=== PATIENT | male | born 1995 | race Caucasian/White ===

== ENCOUNTER 2017-04-07 15:28 | Observation (INO) | payer SELFPAY ==
[~2017-04-07 15:28] MED LIST: CYCL5TAB PO; NAPR500T2 PO; RANI150C PO
[2017-04-07] MEDS ORDERED: DEXTROSE 50% IN WATER 50 ML VIAL(D50) IV PUSH PRN (15:45)
[2017-04-07] MEDS ORDERED: GLUCAGON 1 MG/ML VIAL OTHER PRN (15:45)
[2017-04-07] MEDS ORDERED: SODIUM CHLORIDE 0.9% FLUSH 5 ML FLUSH IV FLUSH PRN (15:45)
--- NOTE | 2017-04-07 19:59 | RADRPT ---
EXAM DATE/TIME: 04/07/2017 18:31 [facility] COMPARISON: No previous studies available for comparison. INDICATIONS : Transient ischemic attack. MEDICAL HISTORY : None. SURGICAL HISTORY : None. ENCOUNTER: Initial ACUITY: 1 day PAIN SCORE: 3/10 LOCATION: Bilateral neck PEAK SYSTOLIC VELOCITIES (cm/sec): ICA/CCA RATIO: Right: 0.9 Left: 0.7 ICA: Right: 106.9 Left: 80.9 CCA: Right: 122.1 Left: 117.4 ECA: Right: 60.3 Left: 55.6 VERTEBRAL: Right: 56.7 antegrade Left: 72.1 antegrade Elevated flow velocities and ICA/CCA ratios have been found to correlate with increased degrees of vessel stenosis, calculated as percentage of diameter relative to a normal segment of distal ICA/CCA FINDINGS: RIGHT CAROTID: No significant stenosis is visualized. The waveforms are within normal limits. LEFT CAROTID: No significant stenosis is visualized. The waveforms are within normal limits. VERTEBRAL ARTERIES: Antegrade flow is seen in both vertebral arteries. MISCELLANEOUS: None. CONCLUSION: Normal examination. Yo Man MD on April 07, 2017 at 19:56 Board Certified Radiologist. This report was verified electronically.
[2017-04-07 20:08] VITALS: BP 140/87; PULSE 68; RESP 19; TEMP 98.1; O2SAT 99
--- NOTE | 2017-04-07 20:15 | HHI.HP ---
[facility] Service [facility] Physician Tru Pantoja MD Admission Diagnosis Diagnoses: Travel History International Travel<30 Days: No Contact w/Intl Traveler <30 Da: No Traveled to Known Affected Are: No History of Present Illness 21-year-old male with a past medical history significant for IV drug abuse, last injection apparently yesterday, presents to the emergency department with left sided facial, upper and lower extremity weakness. The patient reports that he was playing with his children when he felt a numbness and tingling over the left side of his face and he was unable to use his left arm and left leg. He states he was unable to walk for a period of time and then gradually his function returned. His family members state that they witnessed the left side of his face with a significant facial droop, now resolved. The patient reports that his symptoms have resolved except for a residual left lower extremity numbness and tingling from his toes to his mid thigh. Head CT was negative for acute process. Carotid ultrasound was unremarkable. Review of Systems Denies fever or chills Denies blurry vision, otorrhea, rhinorrhea Denies sore throat and cough No chest pain, palpitations, shortness of breath No abdominal pain Denies constipation/diarrhea/nausea/vomiting Positive left-sided weakness No rashes Past Family Social History Past Medical History Asthma GERD Hypertension, not medicated LAYNE, no CPAP Past Surgical History Appendectomy Deviated septum Tonsillectomy Reported Medications None Allergies: Coded Allergies: cefaclor (Verified Allergy, Severe, 04/07/17) Family History Mom with von Willebrand's disease. Dad with diabetes and hypertension. Social History Smokes 1/2-1 pack per day 12 years. Rare alcohol. Endorses marijuana use. Also injects IV heroin, last injection yesterday Physical Exam Physical Exam GENERAL: Thin male lying in bed SKIN: No rashes, ecchymoses or lesions. Cool and dry. HEAD: Atraumatic. Normocephalic. No temporal or scalp tenderness. EYES: Pupils equal round and reactive. Extraocular motions intact. No scleral icterus. No injection or drainage. ENT: Nose without bleeding, purulent drainage or septal hematoma. Throat without erythema, tonsillar hypertrophy or exudate. Uvula midline. Airway patent. NECK: Trachea midline. No JVD or lymphadenopathy. Supple, nontender, no meningeal signs. CARDIOVASCULAR: Regular rate and rhythm without murmurs, gallops, or rubs. RESPIRATORY: Clear to auscultation. Breath sounds equal bilaterally. No wheezes , rales, or rhonchi. GASTROINTESTINAL: Abdomen soft, non-tender, nondistended. No hepato-splenomegaly , or palpable masses. No guarding. MUSCULOSKELETAL: Extremities without clubbing, cyanosis, or edema. No joint tenderness, effusion, or edema noted. No calf tenderness. Negative Homans sign bilaterally. NEUROLOGICAL: Awake and alert. Cranial nerves II through XII intact. 5/5 strength throughout. Decreased sensation left lower extremity from toes to mid thigh. No facial droop. Caprini VTE Risk Assessment Caprini VTE Risk Assessment: No/Low Risk (score <= 1) Caprini Risk Assessment Model Point Value = 1 Point Value = 2 Point Value = 3 Point Value = 5 Age 41-60 Minor surgery BMI > 25 kg/m2 Swollen legs Varicose veins or History of unexplained or recurrent spontaneous Oral contraceptives or hormone replacement Sepsis (< 1 month) Serious lung disease, including pneumonia (< 1 month) Abnormal pulmonary function Acute myocardial infarction Congestive heart failure (< 1 month) History of inflammatory bowel disease Medical patient at bed rest Age 61-74 Arthroscopic surgery Major open surgery (> 45 min) Laparoscopic surgery (> 45 min) Malignancy Confined to bed (> 72 hours) Immobilizing plaster cast Central venous access Age >= 75 History of VTE Family history of VTE Factor V Leiden Prothrombin [id number] Lupus anticoagulant Anticardiolipin antibodies Elevated serum homocysteine Heparin-induced thrombocytopenia Other congenital or acquired thrombophilia Stroke (< 1 month) Elective arthroplasty Hip, pelvis, or leg fracture Acute spinal cord injury (< 1 month) Prophylaxis Regimen Total Risk Factor Score Risk Level Prophylaxis Regimen 0-1 Low Early ambulation 2 Moderate Order ONE of the following: *Sequential Compression Device (SCD) *Heparin 5000 units SQ BID 3-4 Higher Order ONE of the following medications: *Heparin 5000 units SQ TID *Enoxaparin/Lovenox 40 mg SQ daily (WT < 150 kg, CrCl > 30 mL/min) *Enoxaparin/Lovenox 30 mg SQ daily (WT < 150 kg, CrCl > 10-29 mL/min) *Enoxaparin/Lovenox 30 mg SQ BID (WT < 150 kg, CrCl > 30 mL/min) AND/OR *Sequential Compression Device (SCD) 5 or more Highest Order ONE of the following medications: *Heparin 5000 units SQ TID (Preferred with Epidurals) *Enoxaparin/Lovenox 40 mg SQ daily (WT < 150 kg, CrCl > 30 mL/min) *Enoxaparin/Lovenox 30 mg SQ daily (WT < 150 kg, CrCl > 10-29 mL/min) *Enoxaparin/Lovenox 30 mg SQ BID (WT < 150 kg, CrCl > 30 mL/min) AND *Sequential Compression Device (SCD) Assessment and Plan Assessment and Plan 21-year-old male with a past medical history significant for IV drug abuse presents with left sided facial droop and upper and lower extremity weakness 1 day 1. TIA Neurology consulted, appreciate recommendations CT head, carotid ultrasound within normal limits MRI/MRA pending Lipid profile, TSH, A1c pending Echo pending 2. IV drug abuse/Tobacco abuse Counseled patient as to the important of cessation FEN Heart healthy diet and after bedside swallow evaluation Electrolytes: Monitor and replete when necessary SCDs Heather Santiago MD Apr 07, 2017 20:15
[2017-04-07] MEDS: SODIUM CHLORIDE 0.9% FLUSH 5 ML FLUSH IV FLUSH SCH (21:00)
--- NOTE | 2017-04-07 22:16 | RADRPT ---
EXAM DATE/TIME: 04/07/2017 21:14 [facility] COMPARISON: CT BRAIN W/O CONTRAST, April 07, 2017, 11:43. INDICATIONS : TIA. MEDICAL HISTORY : Hypertension. Hemophilia. SURGICAL HISTORY : Tonsillectomy. Appendectomy. Septum. ENCOUNTER: Subsequent ACUITY: 1 day PAIN SCORE: 3/10 LOCATION: cranial TECHNIQUE: Multiplanar, multisequence MRI of the brain was performed without contrast. FINDINGS: CEREBRUM: The ventricles are normal for age. No evidence of midline shift, mass lesion, hemorrhage or acute in farction. No extraaxial fluid collections are seen. The pituitary gland and suprasellar cistern are normal in configuration. WHITE MATTER: No significant signal abnormalities are seen in the white matter. POSTERIOR FOSSA: The cerebellum and brainstem are intact. The 4th ventricle is midline. The cerebellopontine angle is unremarkable. The cerebellar tonsils are normal in position. DIFFUSION IMAGING: No focal areas of restricted diffusion are seen. No evidence of acute infarction. EXTRACRANIAL: The visualized portions of the orbits are unremarkable. There is focal mucosal disease likely represe nting mucus retention cysts seen in the maxillary sinuses bilaterally. CONCLUSION: 1. No intracranial abnormality is seen. 2. Focal mucosal disease at the maxillary sinuses bilaterally. Yo Man MD on April 07, 2017 at 22:13 Board Certified Radiologist. This report was verified electronically.
--- NOTE | 2017-04-07 22:29 | RADRPT ---
EXAM DATE/TIME: 04/07/2017 21:14 [facility] COMPARISON: No previous studies available for comparison. INDICATIONS : TIA. MEDICAL HISTORY : Hypertension. Hemophilia. SURGICAL HISTORY : Tonsillectomy. Appendectomy. Septum. ENCOUNTER: Subsequent ACUITY: 1 day PAIN SCORE: 3/10 LOCATION: cranial Please note a normal MRA of the brain does not entirely exclude the possibility of a small aneurysm, nor the possibility of distal intracranial vessel disease. TECHNIQUE: 3D time of flight MRA was performed. Source images, multiplanar STS MIP, and 3D volume MIP reconstru ctions were reviewed. FINDINGS: There is excellent visualization of the major intracranial arteries out to the second-order branch ve ssels. There is no evidence for aneurysm, vessel truncation or stenosis, and no evidence for vascula r malformation. CONCLUSION: Normal examination. Yo Man MD on April 07, 2017 at 22:26 Board Certified Radiologist. This report was verified electronically.
[2017-04-07 23:44] VITALS: BP 116/66; PULSE 66; RESP 19; TEMP 97.2; O2SAT 98
[2017-04-08] VITALS (8 sets, daily range): BP systolic 113–163; BP diastolic 55–99; PULSE 53–84; RESP 16–18; TEMP 97.9–98.7; O2SAT 96–99
[2017-04-08] MEDS ORDERED: BISACODYL 10 MG SUPP RECTAL PRN (05:30)
[2017-04-08] MEDS ORDERED: ACETAMINOPHEN 325 MG TAB PO PRN ×2 (05:30)
[2017-04-08] MEDS ORDERED: LACTULOSE SYRUP 20 GM/30 ML CUP PO PRN (05:30)
[2017-04-08] MEDS ORDERED: ONDANSETRON HCL 4 MG/2 ML VIAL IVP PRN (05:30)
[2017-04-08] MEDS ORDERED: MAGNESIUM HYDROXIDE SUSP 30 ML CUP PO PRN (05:30)
[2017-04-08] MEDS ORDERED: NALOXONE HCL 0.4 MG/ML AMP IV PUSH PRN (05:30)
[2017-04-08] MEDS ORDERED: SENNOSIDES 8.6 MG TAB PO PRN (05:30)
[2017-04-08 08:41] LABS: HDL CHOLESTEROL 45.7 MG/DL (40.0-60.0)
[2017-04-08] MEDS ORDERED: ASPIRIN 325 MG TAB PO SCH (09:00)
[2017-04-08] MEDS: SODIUM CHLORIDE 0.9% FLUSH 5 ML FLUSH IV FLUSH SCH (09:00)
[2017-04-08] MEDS ORDERED: DOCUSATE SODIUM 50 MG/SENNA 8.6 MG TAB PO SCH (09:00)
--- NOTE | 2017-04-08 11:19 | MB ---
cc: RJ TERAN M.D. DATE OF CONSULTATION 04/08/2017 REASON FOR CONSULTATION This is a 20-year-old seen in neurological consultation in regards to stroke-like symptoms. He came to the emergency room yesterday. It appears that he developed a headache and then developed left-sided weakness, even needed a cane to walk. He has improved and at this point has minimal headache. He admits smoking and now I realized I reviewed in the data that he uses IV heroin. Apparently he shot himself the day before yesterday. It appears that he has a history of hypertension, but does not take any medications. He admits intermittent headaches, but never had symptoms like this. He admits using Naprosyn for back pain occasionally. NEUROLOGICAL EXAM The neurological exam was quite benign. Ocular movements and visual gutierres full. Pupils somewhat large and slightly reactive. No facial weakness. Tongue and palate move well. He has good strength throughout on the bedside exam and reflexes were 1-2+. Plantar responses flexor. ANCILLARY DATA MRI of the brain, MRA head and carotid ultrasound all normal. Sed rate 16, B12 and TSH normal, LDL 46. ASSESSMENT Transient neurological symptoms, possibly a complicated migraine, possibly a TIA related to IV drug use. RECOMMENDATIONS I recommended him to quit smoking altogether, obtain medical care as an outpatient and use a baby aspirin daily. Evidently, by all means avoid any drug abuse. From a neurological standpoint, he can be discharged and be followed by a primary care physician. Thank you for asking us to assist in his care. MD MONICO Rubio/CONRADO /10:56 AM /11:13 AM
[2017-04-08] MEDS ORDERED: ASPI81TA23 PO (12:00)
--- NOTE | 2017-04-08 16:10 | HHI.PR ---
Subjective Remarks Follow-up TIA and IVDU. Patient is doing okay. Aware he needs to be on aspirin. Risk factors for CVA discussed with patient and . Also counseled against IVDU. Denies sinusitis symptoms. Discussed with RN, possible discharge if echocardiogram unremarkable Objective Vitals Vital Signs Date Time Temp Pulse Resp B/P (MAP) Pulse Ox O2 Delivery O2 Flow Rate FiO2 04/08/17 12:19 97.9 61 16 113/55 (74) 96 04/08/17 10:04 98.0 81 16 128/74 (92) 99 04/08/17 08:03 97.9 53 18 133/83 (100) 96 04/08/17 04:18 98.2 54 18 119/61 (80) 97 04/07/17 23:44 97.2 66 19 116/66 (83) 98 04/07/17 20:08 98.1 68 19 140/87 (104) 99 Imaging Last Impressions Head Magnetic Resonance Angiography 04/07/17 0000 Signed Impressions: Service Date/Time: Friday, April 07, 2017 21:14 - CONCLUSION: Normal examination. Yo Man MD Carotid Artery Ultrasound 04/07/17 0000 Signed Impressions: Service Date/Time: Friday, April 07, 2017 18:31 - CONCLUSION: Normal examination. Yo Man MD Brain MRI 04/07/17 0000 Signed Impressions: Service Date/Time: Friday, April 07, 2017 21:14 - CONCLUSION: 1. No intracranial abnormality is seen. 2. Focal mucosal disease at the maxillary sinuses bilaterally. Yo Man MD Objective Remarks GENERAL: Well-developed, well-nourished in no distress SKIN: Warm and dry. HEAD: Atraumatic. Normocephalic. EYES: Pupils equal and round. No scleral icterus. No injection or drainage. ENT: No nasal bleeding or discharge. Mucous membranes pink and moist. No sinus tenderness NECK: Trachea midline. No JVD. CARDIOVASCULAR: Regular rate and rhythm. RESPIRATORY: No accessory muscle use. Clear to auscultation. Breath sounds equal bilaterally. GASTROINTESTINAL: Abdomen soft, non-tender, nondistended. MUSCULOSKELETAL: Extremities without clubbing, cyanosis, or edema. No obvious deformities. NEUROLOGICAL: Awake and alert. No obvious cranial nerve deficits. Motor grossly within normal limits. Five out of 5 muscle strength in the arms and legs. Normal speech. PSYCHIATRIC: Appropriate mood and affect; insight and judgment normal. Procedures None A/P Problem List: (1) TIA (transient ischemic attack) ICD Code: G45.9 - Transient cerebral ischemic attack, unspecified Assessment and Plan 21-year-old male with a past medical history significant for IV drug abuse presents with left sided facial droop and upper and lower extremity weakness 1 day 1. TIA Neurology consulted, appreciate recommendations CT head, carotid ultrasound within normal limits MRI/MRA unremarkable LDL 47 Lipid profile, TSH, A1c pending Echo pending Start aspirin Risk factor modification 2. IV drug abuse/Tobacco abuse Counseled patient as to the important of cessation FEN Heart healthy diet and after bedside swallow evaluation Electrolytes: Monitor and replete when necessary SCDs Discharge Planning Discharge patient to home Condition on discharge: Improved Regular Diet as tolerated Ad Ailyn activity no driving Rx written: Aspirin Follow-up with primary care physician Irving Duenas MD Apr 08, 2017 16:10
--- NOTE | 2017-04-08 16:17 | HHI.DCPOC ---
Discharge Care Plan Diagnosis: (1) IVDU (intravenous drug user) (2) Cocaine abuse (3) TIA (transient ischemic attack) Goals to Promote Your Health * To prevent worsening of your condition and complications * To maintain your health at the optimal level Directions to Meet Your Goals Please quit smoking Please avoid any drug abuse Take your medications as prescribed - 81mg baby aspirin daily Follow your dietary instruction Follow activity as directed Keep your appointments as scheduled Take your immunizations and boosters as scheduled If your symptoms worsen call your PCP, if no PCP go to Urgent Care Center or Emergency Room Smoking is Dangerous to Your Health. Avoid second hand smoke Call the 24-hour hour crisis hotline for domestic abuse at Nisreen Guzmán Apr 08, 2017 16:17
--- NOTE | 2017-04-08 16:57 | ECHRPT ---
Indication: CVA/TIA CONCLUSIONS Normal left ventricular size. Wall thickness is normal. There is mild tricuspid valve regurgitation. The estimated pulmonary arterial pressure is 25 mmHg. The pulmonary valve is not well visualized. BP: / HR: Rhythm: MEASUREMENTS (Male / Female) Normal Values Technical Quality:Good 2D ECHO LV Diastolic Diameter PLAX 4.3 cm 4.2 - 5.9 / 3.9 - 5.3 cm LV Systolic Diameter PLAX 3.3 cm IVS Diastolic Thickness 1.1 cm 0.6 - 1.0 / 0.6 - 0.9 cm LVPW Diastolic Thickness 0.8 cm 0.6 - 1.0 / 0.6 - 0.9 cm LV Relative Wall Thickness 0.4 RV Internal Dim ED PLAX 1.8 cm LA Systolic Diameter LX 3.5 cm 3.0 - 4.0 / 2.7 - 3.8 cm M-MODE Aortic Root Diameter MM 3.2 cm AV Cusp Separation MM 2.3 cm DOPPLER Mitral E Point Velocity 94.3 cm/s Mitral A Point Velocity 59.7 cm/s Mitral E to A Ratio 1.6 TR Peak Velocity 251.0 cm/s TR Peak Gradient 25.2 mmHg FINDINGS LEFT VENTRICLE Normal left ventricular size. Wall thickness is normal. The left ventricular systolic function is normal with an estimated ejection fraction in the range of 60-65%. RIGHT VENTRICLE Normal right ventricular size and systolic function. LEFT ATRIUM The left atrial size is normal. RIGHT ATRIUM The right atrial size is normal. ATRIAL SEPTUM Normal atrial septal thickness without atrial level shunting by limited color doppler interrogation. AORTA The aortic root and proximal ascending aorta are normal in size on limited imaging. MITRAL VALVE Structurally normal mitral valve. No mitral valve stenosis or regurgitation. AORTIC VALVE Trileaflet aortic valve. No aortic valve stenosis or regurgitation. TRICUSPID VALVE There is mild tricuspid valve regurgitation. The estimated pulmonary arterial pressure is 25 mmHg. PULMONARY VALVE The pulmonary valve is not well visualized. VESSELS The inferior vena cava is normal in size. PERICARDIUM No pericardial effusion. Mario Price MD (Electronically Signed) Final Date:08 April 2017 16:57
[2017-04-08 20:19] LABS: HEMOGLOBIN A1a 1.1 %; HEMOGLOBIN A1b 1.6 %; HEMOGLOBIN Ao 85.3 %; HEMOGLOBIN P3 5.1 %
[2017-04-09] MEDS ORDERED: ASPIRIN EC 81 MG TABEC PO SCH (09:00)
== END 2017-04-08 18:38 | disposition home or self-care (01) ==
LOC: NEDDLT 18:45 → NEPGCP 18:55
PROVIDERS: ADMIT Internal Medicine; ATTEND Internal Medicine
DX: G45.9 Transient cerebral ischemic attack, unspecified (principal); F12.90 Cannabis use, unspecified, uncomplicated; F14.10 Cocaine abuse, uncomplicated; F11.90 Opioid use, unspecified, uncomplicated; I10 Essential (primary) hypertension; G47.33 Obstructive sleep apnea (adult) (pediatric); J45.909 Unspecified asthma, uncomplicated; K21.9 Gastro-esophageal reflux disease without esophagitis; F17.200 Nicotine dependence, unspecified, uncomplicated
CPT/HCPCS: 70450; 70544; 70551; 80048; 80061; 80307; 81001; 82607; 83036; 84443; 85025; 85652; 86140; 93005; 93306; 93880; 97161; 99285; G0378; G8987; G8988; 99281

== ENCOUNTER 2017-07-27 11:58 | Observation (INO) | payer MEDICAID ==
[~2017-07-27] VITALS: Ht 182.9 cm; Wt 85.2 kg
[~2017-07-27 11:58] MED LIST changes: +ASPI81TA23 PO; -NAPR500T2 PO
[2017-07-27 12:50] VITALS: BP 130/80; PULSE 63; RESP 15; TEMP 97.6; O2SAT 97
[2017-07-27] MEDS ORDERED: DEXTROSE 50% IN WATER 50 ML VIAL(D50) IV PUSH PRN (13:00)
[2017-07-27] MEDS ORDERED: SODIUM CHLORIDE 0.9% FLUSH 10 ML FLUSH IV FLUSH PRN (13:00)
[2017-07-27] MEDS ORDERED: GLUCAGON 1 MG/ML VIAL OTHER PRN (13:00)
--- NOTE | 2017-07-27 13:48 | RADRPT ---
EXAM DATE/TIME: 07/27/2017 12:52 [facility] COMPARISON: US CAROTID ARTERIES, April 07, 2017, 18:31. INDICATIONS : Cerebrovascular accident. MEDICAL HISTORY : Hypertension. Stroke Sleep apnea. Asthma. Chest pain. Substance use. Hemophilia. SURGICAL HISTORY : Appendectomy. Tonsillectomy. Deviated septum. ENCOUNTER: Initial ACUITY: 1 day PAIN SCORE: 1/10 LOCATION: Bilateral neck PEAK SYSTOLIC VELOCITIES (cm/sec): ICA/CCA RATIO: Right: 0.7 Left: 0.5 ICA: Right: 110 Left: 81 CCA: Right: 150 Left: 157 ECA: Right: 88 Left: 75 VERTEBRAL: Right: 71 antegrade Left: 61 antegrade Elevated flow velocities and ICA/CCA ratios have been found to correlate with increased degrees of vessel stenosis, calculated as percentage of diameter relative to a normal segment of distal ICA/CCA FINDINGS: RIGHT CAROTID: No significant stenosis is visualized. The waveforms are within normal limits. LEFT CAROTID: No significant stenosis is visualized. The waveforms are within normal limits. VERTEBRAL ARTERIES: Antegrade flow is seen in both vertebral arteries. MISCELLANEOUS: None. CONCLUSION: 1. No evidence of hemodynamically significant lesion. Andrew Lehman MD on July 27, 2017 at 13:47 Board Certified Radiologist. This report was verified electronically.
--- NOTE | 2017-07-27 13:54 | HHI.HP ---
[facility] Service [facility] Primary Care Physician Tru Pantoja MD Admission Diagnosis Diagnoses: (1) Paresthesia Diagnosis: Principal (2) Cephalalgia Diagnosis: Principal Chief Complaint: Left arm and leg tingling Travel History International Travel<30 Days: No Contact w/Intl Traveler <30 Da: No History of Present Illness 21-year-old male with known history of possible TIA, migraine, active IV drug use who presented to the hospital because of left arm and leg tingling. Patient is had full workup for same symptoms back in March 2017. At that time neurologist indicated TIA versus migraine variant. Patient has been in his normal state of health to also include his normal use of IV drugs to include heroin and smoking cocaine. Patient woke up this morning with a headache and then when he was in the shower he developed a tingling sensation in his leg. He told his mother and she took him to the emergency department for evaluation. At the emergency department patient had workup done with CT scan that was negative, unremarkable laboratory studies and is recommended by the ER physician that the patient be observed in the hospital for further recommendations. Having patient he is denying any residual symptoms. He denies any visual disturbances, speech difficulties, dysphagia, and ambulation difficulties, ataxia. Review of Systems Neurologic: COMPLAINS OF: Paresthesias (left upper and lower extremities) Except as stated in HPI: all other systems reviewed are Neg Past Family Social History Past Medical History Headache IV drug use Possible history TIA Asthma/COPD Chronic tobacco use History of pericarditis Past Surgical History Patient denies any previous surgeries Reported Medications Reported Meds & Active Scripts Active Aspirin EC (Aspirin) 81 Mg Tabdr 81 Mg PO DAILY Reported Ranitidine (Ranitidine HCl) 150 Mg Cap 150 Mg PO DAILY Flexeril (Cyclobenzaprine HCl) 5 Mg Tab 5 Mg PO TID Allergies: Coded Allergies: cefaclor (Verified Allergy, Severe, 04/07/17) Family History Reviewed is significant for family history diabetes, von Willebrand's Social History Patient does continues smoke one pack a cigarettes a day since he was 10 years old. Denies any alcohol use. States that he still actively using drugs to include smoking cocaine and injecting heroin. Last time he injected was Thursday, 2 days ago Physical Exam Vital Signs Vital Signs Date Time Temp Pulse Resp B/P (MAP) Pulse Ox O2 Delivery O2 Flow Rate FiO2 07/27/17 12:50 97.6 63 15 130/80 (97) 97 Physical Exam GENERAL: Well-developed, well-nourished, in no acute distress. alert and orientated HEENT: Head is normocephalic without any lesions or masses noted. Facial features are symmetric. Eyes: Pupils equal round reactive to light. Extraocular muscles are intact. Conjunctivae were clear. Oropharyngeal: Pharynx without any erythema edema. Tongue is midline without deviation. Buccal mucosa is moist without any masses or lesions NECK: Supple without any masses. Trachea midline no deviation. No JVD, no bruits are appreciated CARDIAC: Regular rhythm, regular rate. S1/S2 are heard. No murmurs gallops or rubs. LUNGS: Clear to auscultation bilaterally. No wheeze, rhonchi or rales. No use of accessory muscles on inspiration or expiration. ABDOMEN: Soft, nontender. Nondistended. Bowel sounds heard in all 4 quadrants. No organomegaly or masses. Negative rebound, negative guarding EXTREMITIES: No edema, pulses are equal bilaterally. No cyanosis or clubbing NEUROLOGY: Mood and affect appear appropriate. Cranial nerves II through XII grossly intact. Muscle strength 5/5 in upper and lower extremities bilaterally. Deep tendon reflexes are 2+ in upper and lower extremities bilaterally. Caprini VTE Risk Assessment Caprini VTE Risk Assessment: No/Low Risk (score <= 1) Caprini Risk Assessment Model Point Value = 1 Point Value = 2 Point Value = 3 Point Value = 5 Age 41-60 Minor surgery BMI > 25 kg/m2 Swollen legs Varicose veins or History of unexplained or recurrent spontaneous Oral contraceptives or hormone replacement Sepsis (< 1 month) Serious lung disease, including pneumonia (< 1 month) Abnormal pulmonary function Acute myocardial infarction Congestive heart failure (< 1 month) History of inflammatory bowel disease Medical patient at bed rest Age 61-74 Arthroscopic surgery Major open surgery (> 45 min) Laparoscopic surgery (> 45 min) Malignancy Confined to bed (> 72 hours) Immobilizing plaster cast Central venous access Age >= 75 History of VTE Family history of VTE Factor V Leiden Prothrombin [id number] Lupus anticoagulant Anticardiolipin antibodies Elevated serum homocysteine Heparin-induced thrombocytopenia Other congenital or acquired thrombophilia Stroke (< 1 month) Elective arthroplasty Hip, pelvis, or leg fracture Acute spinal cord injury (< 1 month) Prophylaxis Regimen Total Risk Factor Score Risk Level Prophylaxis Regimen 0-1 Low Early ambulation 2 Moderate Order ONE of the following: *Sequential Compression Device (SCD) *Heparin 5000 units SQ BID 3-4 Higher Order ONE of the following medications: *Heparin 5000 units SQ TID *Enoxaparin/Lovenox 40 mg SQ daily (WT < 150 kg, CrCl > 30 mL/min) *Enoxaparin/Lovenox 30 mg SQ daily (WT < 150 kg, CrCl > 10-29 mL/min) *Enoxaparin/Lovenox 30 mg SQ BID (WT < 150 kg, CrCl > 30 mL/min) AND/OR *Sequential Compression Device (SCD) 5 or more Highest Order ONE of the following medications: *Heparin 5000 units SQ TID (Preferred with Epidurals) *Enoxaparin/Lovenox 40 mg SQ daily (WT < 150 kg, CrCl > 30 mL/min) *Enoxaparin/Lovenox 30 mg SQ daily (WT < 150 kg, CrCl > 10-29 mL/min) *Enoxaparin/Lovenox 30 mg SQ BID (WT < 150 kg, CrCl > 30 mL/min) AND *Sequential Compression Device (SCD) Assessment and Plan Assessment and Plan Left-sided paresthesia, resolved Patient does have history of possible recent TIA versus migraine variant CT scan was unremarkable thus far Patient with recent fall and extensive workup in March 2017 for same symptoms and at that time neurologist indicated migraine variant versus TIA Patient has been taking his aspirin on a daily basis MRI was performed which did not indicate any acute abnormality. There is no change from previous that was done in March 2017. Will recommend increasing to full dose aspirin, however likely is migraine variant as previously diagnosed by neurologist. Patient was instructed to follow-up with neurologist IV drug use, active Patient counseled on cessation DVT prevention sequential compression devices Discharge disposition Discharge home in stable condition Activity: Ad wai. Diet: Healthy heart diet Medications per medication reconciliation Follow-up primary medical doctor in one week Trip Soriano Jul 27, 2017 13:54
[2017-07-27 16:00] VITALS: BP 133/86; PULSE 64; RESP 16; TEMP 96.1; O2SAT 95
[2017-07-27 16:09] VITALS: PULSE 58
--- NOTE | 2017-07-27 16:58 | RADRPT ---
EXAM DATE/TIME: 07/27/2017 16:38 [facility] COMPARISON: CT BRAIN W/O CONTRAST, July 27, 2017, 6:41. MRI BRAIN W/O CONTRAST, April 07, 2017, 21:14. EXTERNAL COMPARISON : INDICATIONS : Left sided numbness. MEDICAL HISTORY : Chronic obstructive pulmonary disease. TIA. SURGICAL HISTORY : None. ENCOUNTER: Initial ACUITY: 1 day PAIN SCORE: 0/10 LOCATION: head TECHNIQUE: Multiplanar, multisequence MRI of the brain was performed without contrast. FINDINGS: CEREBRUM: The ventricles are normal for age. No evidence of midline shift, mass lesion, hemorrhage or acute in farction. No extraaxial fluid collections are seen. The pituitary gland and suprasellar cistern are normal in configuration. WHITE MATTER: No significant signal abnormalities are seen in the white matter. POSTERIOR FOSSA: The cerebellum and brainstem are intact. The 4th ventricle is midline. The cerebellopontine angle is unremarkable. The cerebellar tonsils are normal in position. DIFFUSION IMAGING: No focal areas of restricted diffusion are seen. Some linear areas of diminished signal in the left c erebral hemisphere on the ADC maps I believe are artifactual as there is no corresponding areas of in creased signal on the standard diffusion weighted images. No evidence of acute infarction. EXTRACRANIAL: The visualized portions of the orbits and paranasal sinuses are unremarkable. CONCLUSION: 1. Areas of diminished signal on the ADC maps in the left parietal lobe I believe is artifactual as t here is no corresponding increase signal on the standard diffusion weighted images. In addition, the area of artifact is discordant with the patient's clinical presentation. 2. Otherwise negative. No change from prior Lui Wray MD on July 27, 2017 at 16:52 Board Certified Radiologist. This report was verified electronically.
[2017-07-27] MEDS ORDERED: INSULIN ASPART SUPPLEMENTAL SCALE SQ SCH (17:00)
--- NOTE | 2017-07-27 17:18 | RADRPT ---
EXAM DATE/TIME: 07/27/2017 16:38 [facility] COMPARISON: MRA BRAIN W/O CONTRAST, April 07, 2017, 21:14. INDICATIONS : Left sided numbness. MEDICAL HISTORY : Chronic obstructive pulmonary disease. TIA. SURGICAL HISTORY : None. ENCOUNTER: Initial ACUITY: 1 day PAIN SCORE: 0/10 LOCATION: head Please note a normal MRA of the brain does not entirely exclude the possibility of a small aneurysm, nor the possibility of distal intracranial vessel disease. TECHNIQUE: 3D time of flight MRA was performed. Source images, multiplanar STS MIP, and 3D volume MIP reconstru ctions were reviewed. FINDINGS: There is excellent visualization of the major intracranial arteries out to the second-order branch ve ssels. There is no evidence for aneurysm, vessel truncation or stenosis, and no evidence for vascula r malformation. CONCLUSION: Normal examination. Terry Zuluaga Jr., MD on July 27, 2017 at 17:15 Board Certified Radiologist. This report was verified electronically.
[2017-07-27] MEDS ORDERED: ASPI325T33 PO (17:30)
--- NOTE | 2017-07-27 17:30 | HHI.DCPOC ---
Discharge Care Plan Diagnosis: (1) Paresthesia (2) Cephalalgia Goals to Promote Your Health * To prevent worsening of your condition and complications * To maintain your health at the optimal level Directions to Meet Your Goals Take your medications as prescribed Follow your dietary instruction Follow activity as directed Keep your appointments as scheduled Take your immunizations and boosters as scheduled If your symptoms worsen call your PCP, if no PCP go to Urgent Care Center or Emergency Room Smoking is Dangerous to Your Health. Avoid second hand smoke Call the 24-hour hour crisis hotline for domestic abuse at Trip Soriano Jul 27, 2017 17:30
[2017-07-27] MEDS ORDERED: SODIUM CHLORIDE 0.9% FLUSH 10 ML FLUSH IV FLUSH SCH (21:00)
[2017-07-27 22:15] LABS: HEMOGLOBIN A1C 5.5 % (4.3-6.0)
== END 2017-07-27 19:52 | disposition home or self-care (01) ==
LOC: PHEDDLT 11:58 → PH3A 12:08
PROVIDERS: ADMIT Hospitalist; ATTEND Hospitalist
DX: R20.2 Paresthesia of skin (principal); R51 Headache; Z72.0 Tobacco use; F14.10 Cocaine abuse, uncomplicated; F11.20 Opioid dependence, uncomplicated; R79.89 Other specified abnormal findings of blood chemistry; R82.99 Other abnormal findings in urine; R79.1 Abnormal coagulation profile; R94.31 Abnormal electrocardiogram [ECG] [EKG]; J44.9 Chronic obstructive pulmonary disease, unspecified; R01.1 Cardiac murmur, unspecified; Z79.82 Long term (current) use of aspirin; Z83.3 Family history of diabetes mellitus; Z83.2 Family history of diseases of the blood and blood-forming organs and certain disorders involving the immune mechanism
CPT/HCPCS: 70450; 70544; 70551; 71045; 80053; 80307; 81001; 83036; 85025; 85610; 85730; 87804; 92610; 93005; 93880; 97162; 99285; G0378; G8987; G8988